=== PATIENT | female | born 1965 | race Caucasian/White ===

== ENCOUNTER 2016-12-26 05:58 | Day surgery (SDC) | payer BC ==
[~2016-12-26] VITALS: Ht 154.9 cm; Wt 52.7 kg
[~2016-12-26 05:58] MED LIST: ASPIRIN E.C. 8181 MG PO; ATENOLOL; BUFFERED ASPIR325 M1 PO; CYANOCOBAL1000 MCG/1; FLEXERIL10 MG PO; LORTAB 5/500 501 TAB PO; MOTRIN 600600 MG/TAB PO; TOPROL XL 50MG50 MG PO; vit b-12
[2016-12-26 06:43] VITALS: BP 137/94; PULSE 76; TEMP 97.9
[2016-12-26] MEDS ORDERED: CELEXA40 MG PO (06:50)
[2016-12-26] MEDS ORDERED: HAIRSKINNAILS PO (06:51)
[2016-12-26] MEDS ORDERED: VITAMINC1000TA PO (06:52)
[2016-12-26] MEDS ORDERED: CALCIUM 600MG+D1 TAB PO (06:52)
[2016-12-26] MEDS ORDERED: B-12 500 MCG PO (06:52)
[2016-12-26] MEDS ORDERED: MULTI VITAMINS1 TAB PO (06:55)
[2016-12-26 07:55] VITALS: BP 135/80; PULSE 77; TEMP 97.7
[2016-12-26 08:10] VITALS: BP 139/103; PULSE 96
[2016-12-26 08:20] VITALS: BP 149/93; PULSE 67
== END 2016-12-26 08:25 | disposition home or self-care (01) ==
LOC: SDCO 05:58
DX: K64.1 Second degree hemorrhoids (principal); K21.0 Gastro-esophageal reflux disease with esophagitis; K22.2 Esophageal obstruction; K62.5 Hemorrhage of anus and rectum; D50.0 Iron deficiency anemia secondary to blood loss (chronic); F41.9 Anxiety disorder, unspecified; I10 Essential (primary) hypertension; Z83.71 Family history of colonic polyps; Z90.710 Acquired absence of both cervix and uterus; Z87.891 Personal history of nicotine dependence; Z90.49 Acquired absence of other specified parts of digestive tract
CPT/HCPCS: J2250; J2405; J3010; J7030

== ENCOUNTER → 2018-02-01 | Outpatient (CLI) | payer BC ==
[~2018-02-01] MED LIST changes: +B-12 500 MCG PO; +CALCIUM 600MG+D1 TAB PO; +CELEXA40 MG PO; +HAIRSKINNAILS PO; +MULTI VITAMINS1 TAB PO; +VITAMINC1000TA PO
== END ==
LOC: MC.RAD 07:35
DX: Z12.31 Encounter for screening mammogram for malignant neoplasm of breast (principal); Z86.69 Personal history of other diseases of the nervous system and sense organs

== ENCOUNTER → 2020-02-09 | Outpatient (CLI) | payer BC | LOC: MC.RAD 07:15 | DX: Z12.31 Encounter for screening mammogram for malignant neoplasm of breast (principal); N63.20 Unspecified lump in the left breast, unspecified quadrant; N63.10 Unspecified lump in the right breast, unspecified quadrant ==